=== PATIENT | female | born 1995 | race Caucasian/White ===

== ENCOUNTER 2018-08-11 20:41 | Inpatient (IN) | payer MEDICAID, OTHER ==
[2018-08-12] MEDS ORDERED: XYLOCAINE 2% INFILTRATI ONE (00:04)
[2018-08-12] MEDS ORDERED: NARCAN 0.4 MG/1 ML IV PRN (00:04)
[2018-08-12] MEDS ORDERED: CERVIDIL VG ONE (00:04)
[2018-08-12] MEDS ORDERED: ZOFRAN IV PRN (00:04)
[2018-08-12] MEDS ORDERED: BRETHINE SUB-Q PRN (00:04)
[2018-08-12] MEDS ORDERED: MINERAL OIL PO PRN (00:04)
--- NOTE | 2018-08-12 00:11 | History and Physical Report ---
History of Present Illness Date of admission: 08/11/18 20:41 Chief complaint: induction of labor for suspected cholestasis of , decreased movement and low SIOBHAN History of present illness: 22yo at 37 1/7 weeks SHAD 08/27/18 admitted for induction due to APA recommendation secondary to cholestasis of (elevated AST, cholic acid, normal bile acids), low SIOBHAN 7 and decreased movement. She reports movement today, no loss of fluid and no vaginal bleeding. [facility]. She is GBS negative. 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 Assessment and Plan - Patient Problems (1) 37 weeks gestation of Current Visit: Yes Status: Acute Plan to address problem: Routine labs CMP, LDH Continuous monitoring IVF Induction of labor - Cervidil, Pitocin Anticipate (2) Cholestasis of Current Visit: Yes Status: Acute
[2018-08-12 00:16] LABS: Hematocrit 35.4 % (30.3-42.9); Hemoglobin 12.4 gm/dl (10.1-14.3); Mean Corpuscular HGB Conc 35 % (30-34); Mean Corpuscular Volume 83 fl (79-97); Platelet Count 155 K/mm3 (140-440); Red Blood Count 4.26 M/mm3 (3.65-5.03); Red Cell Distribution Width 12.8 % (13.2-15.2)
[2018-08-12 00:35] LABS: Alanine Aminotransferase 53 units/L (7-56); Albumin 3.3 g/dL (3.9-5); BUN/Creatinine Ratio 23; Blood Urea Nitrogen 7 mg/dL (7-17); Calcium 8.5 mg/dL (8.4-10.2); Hemolysis Index 32
[2018-08-12] MEDS: STADOL IV PRN ×2 (00:57→09:52)
[2018-08-12] MEDS ORDERED: LACTATED RINGERS 1,000 ML IV SCH (01:00)
[2018-08-12] MEDS ORDERED: SUBLIMAZE IV ONE (10:35)
--- NOTE | 2018-08-12 10:41 | Progress Note ---
Assessment and Plan A: IUP @ 37 1/7 Weeks Category I Tracing Active Labor Cholestasis of GBS Negative P: Cervidil Removed Start Pitocin Augmentation Fentanyl 100mg IV q 2 hours PRN intense pain Subjective - Subjective Date of service: 08/12/18 Patient reports: new complaints (states Stadol makes her feel dizzy and uncomfortable. Request another type of pain medication. Does not want epidural anesthesia), loss of fluid (states her water broke a 10:00 this morning), movement normal, contractions Objective - Vital Signs Vital Signs: Vital Signs - 12hr 08/12/18 08/12/18 08/12/18 07:19 07:30 08:20 Temperature 98.2 F Pulse Rate 81 81 Respiratory 18 Rate Blood Pressure 113/61 94/50 08/12/18 08/12/18 09:20 10:20 Temperature Pulse Rate 88 99 H Respiratory Rate Blood Pressure 99/48 105/67 - Exam Breasts: normal Cardiovascular: Regular rate Lungs: Clear to auscultation, Normal air movement Abdomen: Present: normal appearance, soft, normal bowel sounds Uterus: Present: normal, firm, fundal height above umbilicus FHR: category 1 Uterine Contraction Monitor Mode: External Cervical Dilatation: 5.5 (scant amont of clear fluid on underpad; no BOW palpated) Cervical Effacement Percentage: 90 station: 0 Uterine Contraction Pattern: Regular Uterine Tone Measurement Phase: Resting Uterine Contraction Intensity: Moderate Extremities: normal - Labs Labs: Abnormal Labs 08/12/18 08/12/18 00:03 00:03 MCHC 35 H RDW 12.8 L Sodium 134 L Carbon Dioxide 19 L Creatinine 0.3 L Alkaline Phosphatase 357 H Lactate Dehydrogenase 220 H Total Protein 6.2 L Albumin 3.3 L Laboratory Results - last 24 hr 08/12/18 08/12/18 08/12/18 00:03 00:03 00:03 WBC 10.8 RBC 4.26 Hgb 12.4 Hct 35.4 MCV 83 MCH 29 MCHC 35 H RDW 12.8 L Plt Count 155 Sodium 134 L Potassium 4.2 Chloride 101.6 Carbon Dioxide 19 L Anion Gap 18 BUN 7 Creatinine 0.3 L Estimated GFR > 60 BUN/Creatinine Ratio 23 Glucose 78 Calcium 8.5 Total Bilirubin 0.50 AST 36 ALT 53 Alkaline Phosphatase 357 H Lactate Dehydrogenase 220 H Total Protein 6.2 L Albumin 3.3 L Albumin/Globulin Ratio 1.1 Blood Type O POSITIVE Antibody Screen Negative
[2018-08-12] MEDS: PITOCin/NS 20 UNIT/1000ML DRIP 20 UNITS/1,000 ML BAG IV SCH ×2 (10:58→12:14)
[2018-08-12] MEDS ORDERED: PITOCin/NS 30 UNIT/500ML 30 UNITS/500 ML BAG IV SCH (11:00)
[2018-08-12] MEDS ORDERED: TUCKS PAD TP PRN (11:20)
[2018-08-12] MEDS ORDERED: NORCO 5/325 PO PRN (11:20)
[2018-08-12] MEDS ORDERED: BENADRYL PO PRN (11:20)
[2018-08-12] MEDS ORDERED: PHENERGAN PO PRN (11:20)
--- NOTE | 2018-08-12 11:32 | Procedure Note ---
OB Delivery Note - Delivery Date of Delivery: 08/12/18 (1050) Surgeon: EMILIANO REBOLLEDO Estimated blood loss: 200cc - Vaginal Delivery presentation: vertex Delivery position: OA Intrapartum events: none Delivery induction: cervidil Delivery monitor: external FHT, external uterine Route of delivery: Delivery placenta: spontaneous Delivery cord: nuchal cord, 3 umbilical vessels Delivery laceration: 1st degree Delivery repair: vicryl Anesthesia: local Delivery comments: of a live 6'14 male over a 1st degree perineal laceration under IV pain control with Apgars of 9 and 9 at 1050 on 08/12/2018. Nuchal cord x1 easily manually reduced on the perineum prior to delivery of the anterior shoulder. directly to maternal abd/chest, skin to skin contact. Spontaneous delivery of placenta complete and intact with Gilbert side presenting at 1053. Fundus is firm and midline located 4 below the U. Lochia is scant. Perineal laceration repaired with 2-[address]-1 under 2% Lidocaine. Cord blood collected; placenta discarded. - A at 1 minute: 9 at 5 minutes: 9 Gender: Male (6'14)
[2018-08-12] MEDS ORDERED: SODIUM CHLORIDE FLUSH SYRINGE 10 ML IV NR (12:00)
[2018-08-12] MEDS: IBUPROFEN PO SCH ×2 (12:14→22:26)
[2018-08-12 23:11] LABS: Hematocrit 33.2 % (30.3-42.9); Hemoglobin 11.2 gm/dl (10.1-14.3)
[2018-08-13] MEDS: IBUPROFEN PO SCH (10:51)
--- NOTE | 2018-08-13 12:04 | Progress Note ---
Assessment and Plan A: PPD#1 s/p Stable Desires Depo Provera Desires Discharge home P: Routine PP orders Discharge home today pending Peds Depo Provera prior to discharge PPE in 6 weeks Subjective - Subjective Date of service: 08/13/18 Principal diagnosis: PPD#1 s/p Interval history: See H&P and delivery note Patient reports: appetite normal, voiding normally, pain well controlled, flatus, ambulating normally, no bowel movement : doing well, other (Breast/bottle) Objective - Vital Signs Latest vital signs: Vital Signs Temp Pulse Resp BP BP Pulse Ox 08/13/18 10:51 20 08/13/18 08:01 98.5 F 70 16 105/72 97 08/13/18 01:41 97.2 F L 63 18 94/50 97 08/12/18 23:26 18 08/12/18 22:26 18 08/12/18 20:25 97.7 F 69 18 108/70 98 08/12/18 16:11 97.3 F L 67 18 106/59 08/12/18 12:45 98.7 F 76 18 124/65 08/12/18 12:20 97.7 F 20 08/12/18 12:12 91 H 116/71 Intake and Output 08/12/18 08/13/18 08/13/18 23:59 07:59 15:59 Intake Total 600 Balance 600 Intake: Oral 600 Other: Total, Intake Amount 120 Total, Output Amount 1 # Voids Void 1 - Exam Breasts: Present: normal, Cardiovascular: Present: Regular rate, Normal S1, Normal S2, No murmurs Lungs: Present: Clear to auscultation, Normal air movement Abdomen: Present: normal appearance, soft, normal bowel sounds. Absent: distention, tenderness Vulva: both: laceration/episiotomy (1st degree; well approximated) Uterus: Present: firm, fundal height below umbilicus (-1) Extremities: Present: normal Deep Tendon Reflex Grade: Normal +2
--- NOTE | 2018-08-13 12:05 | Discharge Summary ---
Providers - Providers Date of Admission: 08/11/18 20:41 Date of discharge: 08/13/18 Attending physician: BOBBY BRONSON MD Primary care physician: BOBBY BRONSON MD Hospitalization Reason for admission: active labor, IUP at term Delivery: Procedure details: See H&P and delivery note Episiotomy: none Laceration: 1st degree (well approximated) Other procedures: none complications: none Discharge diagnosis: IUP at term delivered baby: male Condition at discharge: Good Disposition: DC-01 TO HOME OR SELFCARE Plan - Provider Discharge Summary Activity: routine, no sex for 6 weeks, no heavy lifting 4 weeks, no strenuous exercise Diet: routine Instructions: routine Additional instructions: [] Smoking cessation referral if applicable(refer to patient education folder for contact #) [] Refer to [facility]'s [facility] Booklet Call your doctor immediately for: * Fever > 100.5 * Heavy vaginal bleeding ( >1 pad per hour) * Severe persistent headache * Shortness of breath * Reddened, hot, painful area to leg or breast * Drainage or odor from incision. * Keep incision clean and dry at all times and follow doctor's instructions regarding bathing/showering - Follow up plan Follow up: BOBBY BRONSON MD [Primary Care Provider] - 6 Weeks
[2018-08-13] MEDS ORDERED: DEPO-PROVERA (CONTRACEPTION) IM ONE (12:30)
[2018-08-13 17:11] VITALS: BP 118/76
== END 2018-08-13 17:20 | disposition home or self-care (01) | DRG 805 ==
LOC: LD 20:41 → OB 08-12 12:56
PROVIDERS: ADMIT Obstetrics & Gynecology; ATTEND Obstetrics & Gynecology
PROC: 10E0XZZ Delivery of Products of Conception, External Approach (ICD-10-PCS; principal; 2018-08-12)
PROC: 3E0P7VZ Introduction of Hormone into Female Reproductive, Via Natural or Artificial Opening (ICD-10-PCS; 2018-08-12)
PROC: 0HQ9XZZ Repair Perineum Skin, External Approach (ICD-10-PCS; 2018-08-12)
DX: O69.81X0 Labor and delivery complicated by cord around neck, without compression, not applicable or unspecified (principal); K83.1 Obstruction of bile duct; Z37.0 Single live birth; O26.62 Liver and biliary tract disorders in childbirth; O70.0 First degree perineal laceration during delivery; Z3A.37 37 weeks gestation of pregnancy
CPT/HCPCS: 36415; 80053; 83615; 85014; 85018; 85027; 86592; 86850; 86900; 86901; 96374; 96376; G0378; J0595; J2590; J7120